=== PATIENT | male | born 1935 | race Caucasian/White ===

== ENCOUNTER 2021-01-05 16:13 | Emergency (ER) | payer MEDICARE ==
[2021-01-05 16:49] LABS: BASOPHILS # (AUTO) 0.1 10^3/uL (0.0-0.1); BASOPHILS % (AUTO) 0.7 %; EOSINOPHILS # (AUTO) 0.3 10^3/uL (0.0-0.7); EOSINOPHILS % (AUTO) 3.8 %; HCT - HEMATOCRIT 34.1 % (42.0-52.0); LYMPHOCYTES % (AUTO) 33.1 %; MEAN CORPUSCULAR HEMOGLOBIN 33.4 pg (27.0-31.0); MEAN CORPUSCULAR HGB CONC 32.3 g/dL (32.0-36.0); MEAN CORPUSCULAR VOLUME 103.6 fL (80.0-94.0); MEAN PLATELET VOLUME 10.2 fL (7.4-11.4); MONOCYTES # (AUTO) 0.8 10^3/uL (0.0-1.0); MONOCYTES % (AUTO) 8.8 %; NEUTROPHILS # (AUTO) 4.8 10^3/uL (1.5-6.6); PLT - PLATELET COUNT 197 10^3/uL (130-450); RED BLOOD COUNT 3.29 10^6/uL (4.70-6.10)
--- NOTE | 2021-01-05 16:52 | ED Physician Documentation ---
History of Present Illness - Stated complaint Stated Complaint: WEAK, DIZZY - Chief complaint Chief Complaint: Neuro - Additonal information Additional information: To the -wirj-iig male who has a history of hypertension, diabetes and chronic kidney disease see department for feeling progressively weak having vomiting and feeling generally unwell. This has been a progressive symptom for the better part of 2 months. He was taking an injectable Diabetes medication That he took every week for 1 month in November. However after taking these injections he was persistently nauseated and fatigued. Thus in the month of December he stopped taking this injection and went back to his normal diabetes medications. [place] in [place]. He states that when he took the trash out to the driveway this week he had to lay down in the driveway because he felt fatigued after walking. He denies however that he was having any chest pain or shortness of air. Patient states that over the last month the only time he has felt nauseated is when he is in a warm shower not nauseous other times Review of Systems Constitutional: reports: Fatigue Eyes: reports: Loss of vision Nose: reports: Reviewed and negative Throat: reports: Reviewed and negative Cardiac: denies: Chest pain / pressure, Palpitations, Pedal edema, Calf pain Respiratory: denies: Dyspnea, Cough GI: reports: Nausea, Vomiting. denies: Abdominal Pain : reports: Reviewed and negative Skin: reports: Reviewed and negative Musculoskeletal: reports: Reviewed and negative Neurologic: reports: Generalized weakness. denies: Headache, Head injury, LOC PD PAST MEDICAL HISTORY - Present Medications Home Medications: Ambulatory Orders Medication Instructions Recorded Confirmed Ascorbic Acid [Vitamin C] 500 mg PO DAILY 01/05/21 01/05/21 Aspirin [Kinta Aspirin] 81 mg PO DAILY 01/05/21 01/05/21 Atorvastatin [Lipitor] 5 mg PO DAILY 01/05/21 01/05/21 Ferrous Sulfate 325 mg PO DAILY 01/05/21 01/05/21 Glipizide [Glipizide ER] 5 mg PO DAILY 01/05/21 01/05/21 Lisinopril [Zestril] 10 mg PO DAILY 01/05/21 01/05/21 Sitagliptin Phosphate [Januvia] 50 mg PO DAILY 01/05/21 01/05/21 hydroCHLOROthiazide [Hydrodiuril] 25 mg PO DAILY 01/05/21 01/05/21 - Allergies Allergies/Adverse Reactions: Allergies Allergy/AdvReac Type Severity Reaction Status Date / Time No Known Drug Allergies Allergy Verified 01/05/21 16:23 PD ED PE EXPANDED - General General: Alert, No acute distress, Well developed/nourished - Cardiac Cardiac: Regular Rate, Murmur Present, Radial strong equal, Cap refill < 2 sec - Respiratory Respiratory: Clear to ausultation arnel. No: Distress, Labored - Abdomen Abdomen: Normal Bowel sounds. No: Tender to palpation - Derm Derm: Normal color, Warm and dry. No: Rash - Extremities Extremities: Normal. No: Deformity, Tenderness - Neuro Neuro: Alert and Oriented X 3, CNII-XII intact - GCS Eye Opening: Spontaneous Motor: Obeys Commands Verbal: Oriented Total: 15 Results - Vitals Vitals: Vital Signs - 24 hr 01/05/21 01/05/21 16:23 17:34 Temperature 36.3 C L Heart Rate 70 Heart Rate [ 73 Sitting] Heart Rate [ 87 Standing] Heart Rate [ 70 Supine] Respiratory 18 Rate Blood Pressure 118/60 Blood Pressure 117/60 [Sitting] Blood Pressure 123/61 [Standing] Blood Pressure 137/60 H [Supine] O2 Saturation 100 Oxygen O2 Source Room air - EKG (time done) 1627 Rate: Rate (enter#) (71) Rhythm: NSR, Other (multiple PVS) Tutor Key: Normal Intervals: Normal [place], Prolonged QT, LBBB QRS: Normal Ischemia: Normal ST segments Computer interpretation: Agree with computer (LBB; no previous for comparrison. ) - Labs Labs: Laboratory Tests 01/05/21 01/05/21 01/05/21 16:15 16:38 16:38 WBC 9.0 RBC 3.29 L Hgb 11.0 L Hct 34.1 L MCV 103.6 H MCH 33.4 H MCHC 32.3 RDW 12.0 Plt Count 197 MPV 10.2 Neut # (Auto) 4.8 Lymph # (Auto) 3.0 Wetzel # (Auto) 0.8 Eos # (Auto) 0.3 Baso # (Auto) 0.1 Absolute Nucleated RBC 0.00 Nucleated RBC % 0.0 Sodium 137 Potassium 4.3 Chloride 105 Carbon Dioxide 22 Anion Gap 10.0 BUN 64 H Creatinine 2.1 H Estimated GFR (MDRD) 30 L Glucose 261 H Calcium 9.1 Total Bilirubin 0.6 AST 17 ALT 20 Alkaline Phosphatase 109 Troponin I High Sens Total Protein 7.1 Albumin 3.9 Globulin 3.2 Albumin/Globulin Ratio 1.2 Lipase 27 TSH 2.05 Urine Color Urine Clarity Urine pH Ur Specific Pandora Urine Protein Urine Glucose (UA) Urine Ketones Urine Occult Blood Urine Nitrite Urine Bilirubin Urine Urobilinogen Ur Leukocyte Esterase Ur Microscopic Review Urine Culture Comments 01/05/21 01/05/21 16:38 17:29 WBC RBC Hgb Hct MCV MCH MCHC RDW Plt Count MPV Neut # (Auto) Lymph # (Auto) Wetzel # (Auto) Eos # (Auto) Baso # (Auto) Absolute Nucleated RBC Nucleated RBC % Sodium Potassium Chloride Carbon Dioxide Anion Gap BUN Creatinine Estimated GFR (MDRD) Glucose Calcium Total Bilirubin AST ALT Alkaline Phosphatase Troponin I High Sens 6.9 Total Protein Albumin Globulin Albumin/Globulin Ratio Lipase TSH Urine Color YELLOW Urine Clarity CLEAR Urine pH 5.0 Ur Specific Pandora 1.020 Urine Protein NEGATIVE Urine Glucose (UA) 100 H Urine Ketones NEGATIVE Urine Occult Blood NEGATIVE Urine Nitrite NEGATIVE Urine Bilirubin NEGATIVE Urine Urobilinogen 0.2 (NORMAL) Ur Leukocyte Esterase NEGATIVE Ur Microscopic Review NOT INDICATED Urine Culture Comments NOT INDICATED - Rads (name of study) cxr Radiology: Final report received (Large lung volumes which may reflect body habitus and aggressive inspiratory effort. Definitive emphysema is not present.) PD MEDICAL DECISION MAKING - ED course Complexity details: reviewed results, re-evaluated patient, d/w patient, d/w family ED course: 85-year-old male presents the emergency department for evaluation of progressive fatigue and nausea when he is in the shower. He does have a history of stage IV chronic kidney disease as well as diabetes and hypertension. He is denying any chest pain or shortness of air. Screening chest x-ray does not show any worrisome findings. His EKG does show a left bundle branch block. There is no previous for comparison but he denies chest pain and his high-sensitivity troponin is negative. He does have a mild anemia consistent with chronic kidney disease and chronic disease in general. He does have a BUN of 64 and a creatinine of 2.4. He was given 1 L of IV fluids here in the ER however in discussion with the patient and his daughter these values seem about baseline. At this time the cause of his fatigue and nausea is not clear given that he has a LBBB on EKG he is advised close follow-up with his criminology teacher. He declined nausea medicine today in the ER. I think encouraged improved hydration and further follow-up with his primary care provider. Departure - Departure Disposition: 01 Home, Self Care Clinical Impression: History of diabetes mellitus, Left bundle branch block (LBBB) Fatigue Qualifiers: Fatigue type: unspecified Qualified Code(s): R53.83 - Other fatigue Chronic kidney disease (CKD) Qualifiers: Chronic kidney disease stage: stage 4 (severe) Qualified Code(s): N18.4 - Chronic kidney disease, stage 4 (severe) Condition: Stable Record reviewed to determine appropriate education?: Yes Comments: Walter you are seen in the ER today for fatigue as well as nausea after taking hot showers. Your EKG is not normal. It does show a left bundle branch block but is unclear how long you have had that EKG change. I do encourage you to follow-up very closely with your criminology teacher. You may benefit from a stress test and/or echocardiogram. The rest of your screening labs today do show a chronic kidney disease which you were previously aware of. Chest x-ray was unremarkable for age. At this time I think is important you continue very close follow-up with your primary doctor and your criminology teacher. If at any point your symptoms worsen, you develop chest pain, have any fainting episodes, suddenly severe abdominal pain or uncontrolled vomiting please return immediately to the ER for a second look.
[2021-01-05] MEDS ORDERED: ONDANSETRON 4 MG/2 ML VIAL IVP STA (16:56)
[2021-01-05] MEDS ORDERED: SODIUM CHLORIDE 0.9% 1,000 ML IV STA (16:56)
[2021-01-05 17:06] LABS: ALBUMIN 3.9 g/dL (3.2-5.5); ALBUMIN/GLOBULIN RATIO 1.2 (1.0-2.2); BILIRUBIN,TOTAL 0.6 mg/dL (0.2-1.0); CALCIUM 9.1 mg/dL (8.5-10.3); CREATININE 2.1 mg/dL (0.6-1.2); POTASSIUM 4.3 mmol/L (3.5-5.0); TOTAL PROTEIN 7.1 g/dL (6.7-8.2)
[2021-01-05 17:40] LABS: BILIRUBIN,URINE NEGATIVE (NEGATIVE); GLUCOSE, URINE (UA) 100 mg/dL (NEGATIVE); KETONES,URINE (UA) NEGATIVE (NEGATIVE); LEUKOCYTE ESTERASE, URINE NEGATIVE (NEGATIVE); NITRITE,URINE NEGATIVE (NEGATIVE); OCCULT BLOOD,URINE NEGATIVE (NEGATIVE); PROTEIN,URINE NEGATIVE (NEGATIVE); UROBILINOGEN,URINE 0.2 (NORMAL) E.U./dL (NORMAL)
[2021-01-05 17:44] LABS: CLARITY,URINE CLEAR (CLEAR)
--- NOTE | 2021-01-05 18:10 | XRAY Report ---
PROCEDURE: Chest 1 View X-Ray INDICATIONS: Chest Pain TECHNIQUE: One view of the chest was acquired. COMPARISON: None FINDINGS: Surgical changes and devices: None. Lungs and pleura: No pleural effusions or pneumothorax. Lungs are clear. Mediastinum: Mediastinal contours appear normal. Heart size is normal. Bones and chest wall: No suspicious bony lesions. Overlying soft tissues appear unremarkable. IMPRESSION: Large lung volumes, which may reflect body habitus and aggressive inspiratory effort. Definite emphys jeff is not present. Source of chest pain is not found. Reviewed by: Manny Barclay MD on 01/05/2021 6:09 PM PDT Approved by: Manny Barclay MD on 01/05/2021 6:09 PM PDT Station ID: [id number]
[2021-01-05 18:31] VITALS: BP 151/63
== END 2021-01-05 18:43 | disposition home or self-care (01) ==
LOC: ED 16:13
DX: E11.22 Type 2 diabetes mellitus with diabetic chronic kidney disease (principal); I12.9 Hypertensive chronic kidney disease with stage 1 through stage 4 chronic kidney disease, or unspecified chronic kidney disease; N18.5 Chronic kidney disease, stage 5; Z79.4 Long term (current) use of insulin; I44.7 Left bundle-branch block, unspecified
CPT/HCPCS: 36415; 80053; 81001; 81003; 83690; 84443; 84484; 85025; 87086; 93005; 99284